=== PATIENT | male | born 1965 | race Caucasian/White ===

== ENCOUNTER 2016-07-29 15:34 | Emergency (ER) | payer OTHER ==
[~2016-07-29] VITALS: Ht 154.9 cm; Wt 77.7 kg
[~2016-07-29 15:34] MED LIST: COLACE100 MG PO; FLOMAX0.4 MG PO; HYDROCHLOROTHIA25 MG PO; NORCO 5/3251 TABLET PO; PRAVACHOL40 MG PO; PROCTOCORT30 M1 PR; VERAPAMIL HCL360 MG PO; VITAMIN D-32000 UNI2 PO; ZOFRAN ODT4 MG PO
[2016-07-29 17:36] LABS: EOSINOPHIL (%) 2.3 % (0-5); EOSINOPHIL COUNT 0.2 K/uL (0-0.3); IMMATURE GRANULOCYTE (%) 0.2 % (0.0-0.7); IMMATURE GRANULOCYTE COUNT 0.2 K/uL; LYMPHOCYTE COUNT 2.7 K/uL (1.0-2.8); MCH 31.6 PG (29.0-34.0); MCHC 35.2 G/DL (30.0-36.0); MCV 89.6 FL (86-99); MEAN PLAT.VOLUME 8.2 uM^3 (9.0-12.4); MONOCYTE (%) 10.6 % (3-12); NEUTROPHIL (%) 57.4 % (45-76); NEUTROPHIL COUNT 5.3 K/uL (1.8-6.4); PLATELET COUNT 249 K/uL (156-360); RBC DIS.WIDTH-CV 12.2 % (11.8-14.6); RBC DIS.WIDTH-SD 39.2 % (39-53); RED BLOOD COUNT 4.91 M/uL (4.00-5.50); WHITE BLOOD COUNT 9.3 K/uL (4.1-10.2)
[2016-07-29 17:45] LABS: CHLORIDE 102 mEq/L (99-109); POTASSIUM 3.8 mEq/L (3.7-5.4); SODIUM 136 mEq/L (136-147)
[2016-07-29 17:47] LABS: GLUCOSE 95 mg/dL (70-99)
[2016-07-29 17:49] LABS: ANION GAP 10 MEQ/L (2-14); TOTAL BILIRUBIN 0.3 mg/dL (0.0-1.0)
[2016-07-29 17:51] LABS: ALKALINE PHOSPHATASE 63 IU/L (3-129); GFR ESTIMATE (CALCULATED) > 59 mL/min/
[2016-07-29 17:52] LABS: UREA NITROGEN (BUN) 14 mg/dL (9-23)
[2016-07-29 18:40] LABS: ADD MIUA? NO; BILIRUBIN NEGATIVE; BLOOD NEGATIVE; COLOR YELLOW ((YELLOW)); GLUCOSE (STRIP) NEGATIVE; KETONES NEGATIVE; LEUKOCYTES NEGATIVE; NITRITE NEGATIVE; PH, URINE 6.5 (5-8); PROTEIN (STRIP) NEGATIVE; SPECIFIC GRAVITY 1.018 (1.000-1.030); UCUL ADDED? NO; UROBILINOGEN 0.2 MG/DL (0.2-1.0)
[2016-07-29 18:51] LABS: PROTHROMBIN TIME 10.5 (9.2-11.2); PTT 26.4 (25-32)
[2016-07-29] MEDS ORDERED: BENTYL10 MG PO (22:13)
[2016-07-29 22:44] VITALS: BP 1128/73
== END 2016-07-29 22:45 | disposition home or self-care (01) ==
LOC: EME 15:34
PROVIDERS: Emergency Medicine
DX: R10.32 Left lower quadrant pain (principal); E78.5 Hyperlipidemia, unspecified; I10 Essential (primary) hypertension; Z86.010 Personal history of colon polyps
CPT/HCPCS: 74177; 80053; 81003; 85025; 85610; 85730; 99281; 99284; J1885